=== PATIENT | female | born 1965 | race Two or more races ===

== ENCOUNTER 2025-06-24 10:50 | Day surgery (SDC) | payer MEDICAID ==
[2025-06-19 12:15] LABS: Hematocrit 43.3 % (36.0-46.0); Hemoglobin 14.8 g/dL (12.2-16.2); Mean Corpuscular Hemoglobin 30.3 pg (28.0-32.0); Mean Corpuscular Volume 88.9 fL (80.0-100.0); Nucleated Red Blood Cells % 0.1 %
[2025-06-19 12:23] LABS: Urine Protein, UAD TRACE (Negative)
[2025-06-19 12:28] LABS: INR 1.01 (0.9-1.15); Partial Thromboplastin Time 36.7 SEC (24.5-34.5); Prothrombin Time 10.7 sec (9.3-11.8)
[2025-06-19 12:37] LABS: Albumin 4.3 g/dL (3.2-4.8); Anion Gap 10 (5-15); BUN/Creatinine Ratio 10.1 (10.0-20.0); Bilirubin, Total 0.6 mg/dL (0.2-1.0); Carbon Dioxide 27 mmol/L (20-31); Chloride 106 mmol/L (98-107); Glucose 90 mg/dL (74-106); Potassium 3.6 mmol/L (3.5-5.1); Sodium 143 mmol/L (136-145); Total Protein 7.4 g/dL (5.7-8.2)
[2025-06-19 12:38] LABS: Alanine Aminotransferase 44 U/L (7-40); Alkaline Phosphatase 135 U/L (46-116); Blood Urea Nitrogen 8 mg/dL (9-23)
[2025-06-19 13:16] LABS: Calcium 9.2 mg/dL (8.7-10.4)
[~2025-06-24] VITALS: Ht 172.7 cm; Wt 97.5 kg
[~2025-06-24 10:50] MED LIST: TIRZ2.5I SC
[2025-06-24] MEDS ORDERED: CELECOXIB 100 MG CAP ONE (12:46)
[2025-06-24] MEDS ORDERED: GABAPENTIN 300 MG CAP ONE (12:46)
[2025-06-24] MEDS ORDERED: ACETAMINOPHEN IV 100 ML IV ONE (12:47)
--- NOTE | 2025-06-24 12:47 | DVHOP2 ---
Operative Report - 2 Report Details Date: 06/24/25 Preop Diagnosis: 1. Right achilles tendonitis 2. Right calcaneal bone spur 3. Right haglunds deformity 4. Right foot pain Postop Diagnosis: Same as preop Surgeon: Jani Nation MD Anesthesiologist: See anesthesia Anesthesia: General Implant: [employer] speedbridge Consent: The patient was informed of the risks and benefits of the procedure. These include but are not limited to complications of anesthesia, postoperative infection, incomplete relief of symptoms, recurrence of symptoms, damage to bl ood vessels, nerves and tendons, deep venous thrombosis, pulmonary embolism and possible need for repeat surgery in the future. Complications: None Estimated Blood Loss: Minimal Fluids: See anesthesia Findings: Consistent with the diagnosis Indications for Surgery: Worsening right foot pain Name of Procedure Performed 1. Right achilles repair (10478) 2. Right calcaneal spur excision (88627) Procedure Details Procedure Details: PRE-PROCEDURE INFORMATION: In the pre-op holding area, the extremity to be operated on was clearly marked and the patient verified correct laterality of the marking. The patient was transferred to the OR table and placed in a supine position. A timeout was performed in which identification of the correct patient, procedure, location, and materials was done. The right foot and leg were prepped and draped in normal sterile fashion. The foot and leg were exsanguinated and the thigh tourniquet was inflated to 250 mmHg. DESCRIPTION OF PROCEDURE: Attention was directed to the right posterior heel where a curvilinear incision was made over the posterior heel. Care was taken throughout dissection to avoid damage to neurovascular or tendinous structures. This incision was designed in a manner that, as the incision was deepened to the level of the Achilles, there were 2 flaps that were able to be opened and sutured down so as to be able to gain excellent exposure to the Achilles tendon. The peritenon was incised to be able to reveal the tendon, which appeared to cano ve microtearing and fibrosis. All devitalized tissue and fibrosis was debrided off of the Achilles tendon. The Achilles was then detached from the posterior heel where the large exostosis was identified. Utilizing osteotomes, bone rasps, and other instrumentation, the exostosis of the posterior calcaneus was adequately resected. The area was smoothed down with bone rasps and revealed a normal posterior calcaneus after resection of the exostosis. Next, the Achilles tendon was reattached to the posterior calcaneus using the [employer] SpeedBridge set consisting of bone anchors and the suture material. After the SpeedBridge set was used, the Achilles appeared to be well reattached to the posterior calcaneus and there appeared to be no immediate complications from that reattachment. All surgical wounds were irrigated copiously with saline and closed in layers with the aforementioned suture material. A dry sterile dressing was placed on the surgical extremity. The patient was placed in a cam boot POSTOPERATIVE INFORMATION: The patient tolerated the above noted procedure and anesthesia well and was transferred to the PACU with vital signs stable, and vascular status intact with capillary refill intact to all digits. Postoperative instructions reviewed in detail with the patient with written instructions provided. Patient will return to clinic in approximately 10-14 days for first postoperative visit. Patient has the number of the clinic and was instructed to call prior to that time should any problems, questions, or concerns arise. Condition Good Disposition Home Visit Coding Podiatry Date of Service if different f: Jun 24, 2025 Billing Provider: JANI NATION DPM Podiatry Common Visit Codes: PROCEDURE ONLY JANI NATION DPM Jun 24, 2025 12:47
[2025-06-24] MEDS ORDERED: KETOROLAC TROMETH 30 MG/ML 1ML VIAL ONE (12:48)
[2025-06-24] MEDS ORDERED: PROPOFOL 10 MG/ML 20 ML IV ONE (12:49)
[2025-06-24] MEDS ORDERED: ONDANSETRON HCL 4 MG/2 ML VIAL ONE (12:49)
[2025-06-24] MEDS ORDERED: LIDOCAINE 2%HCL (LOCAL ANESTH.) INJ 20ML MDV ONE (12:49)
[2025-06-24] MEDS ORDERED: GLYCOPYRROLATE 0.2 MG/ML 1ML VIAL ONE (12:49)
[2025-06-24] MEDS ORDERED: ROCURONIUM 10MG/ML 10ML VIAL IV ONE (12:49)
[2025-06-24] MEDS: GABAPENTIN 300 MG CAP PO ONE (12:50)
[2025-06-24] MEDS ORDERED: SUGAMMADEX 200mg/2ml Vial (100MG/ML) IV ONE (12:50)
[2025-06-24] MEDS ORDERED: fentaNYL CITRATE 100 MCG/2 ML VL ONE (12:50)
[2025-06-24] MEDS: ACETAMINOPHEN IV 1000 MG/100ML (10MG/ML) IV ONE (12:50)
[2025-06-24] MEDS: CELECOXIB 100 MG CAP PO ONE (12:50)
[2025-06-24] MEDS ORDERED: KETAMINE 50mg/ML 1ml syringe ONE (12:50)
[2025-06-24] MEDS: ceFAZolin 2 GM/D5W50ml 50 ML IV ONE (12:52)
[2025-06-24 13:55] VITALS: PULSE 97; RESP 12; TEMP 97.3; O2SAT 97
[2025-06-24] MEDS ORDERED: FLUMAZENIL 0.1 MG/ML INJ 10ML MDV IV PRN (14:15)
[2025-06-24] MEDS ORDERED: ONDANSETRON HCL 4 MG/2 ML VIAL IV PRN (14:15)
[2025-06-24] MEDS ORDERED: NALOXONE HCL 0.4 MG/ML VIAL IV PRN (14:15)
[2025-06-24] MEDS ORDERED: hydrALAZINE HCL 20 MG/ML VL IV PRN (14:15)
[2025-06-24] MEDS ORDERED: fentaNYL CITRATE 100 MCG/2 ML VL IV PRN (14:15)
[2025-06-24] MEDS: HYDROmorphone HCL 2 MG/ML VL/or syr IV PRN (14:45)
[2025-06-24 15:10] VITALS: BP 152/95; PULSE 79; RESP 17; O2SAT 97
== END 2025-06-24 16:20 | disposition home or self-care (01) ==
LOC: SUR 10:50
PROVIDERS: ATTEND Podiatrist
DX: M76.61 Achilles tendinitis, right leg (principal); M92.61 Juvenile osteochondrosis of tarsus, right ankle; M77.31 Calcaneal spur, right foot; K76.0 Fatty (change of) liver, not elsewhere classified; E66.9 Obesity, unspecified; Z68.32 Body mass index [BMI] 32.0-32.9, adult; Z79.899 Other long term (current) drug therapy; Z98.890 Other specified postprocedural states
CPT/HCPCS: 27654; 28119; 36415; 80053; 81001; 85025; 85610; 85730; C1713; J0690; J1100; J1171; J1885; J2405; J2704; J0131